=== PATIENT | female | born 1975 | race Caucasian/White ===

== ENCOUNTER 2016-11-28 16:39 | Emergency (ER) | payer MEDICARE, OTHER ==
[~2016-11-28] VITALS: Ht 160 cm; Wt 75.1 kg
[2016-11-28 16:42] VITALS: Ht 160 cm; Wt 75.1 kg
[2016-11-28 18:04] LABS: BASOPHILS % 0.5 % (0.0-2.0); EOSINOPHILS # 0.1 10^3/ul (0.0-0.5); EOSINOPHILS % 0.8 % (0.0-7.0); HEMATOCRIT 42.1 % (37.0-47.0); HEMOGLOBIN 14.4 g/dl (12.0-16.0); LYMPHOCYTES # 3.3 10^3/ul (0.8-2.9); LYMPHOCYTES % 35.4 % (15.0-51.0); MEAN CORPUSCULAR HEMOGLOBIN 33.7 pg (29.0-33.0); MEAN CORPUSCULAR HGB CONC 34.2 g/dl (32.0-37.0); MEAN CORPUSCULAR VOLUME 98.5 fl (82.0-101.0); MEAN PLATELET VOLUME 8.3 fl (7.4-10.4); MONOCYTE # 0.7 10^3/ul (0.3-0.9); MONOCYTES % 7.9 % (0.0-11.0); NEUTROPHIL # 5.2 10^3/ul (1.6-7.5); NEUTROPHILS % 55.4 % (39.0-77.0); PLATELET COUNT 267 10^3/UL (140-440); RED BLOOD COUNT 4.27 10^6/ul (4.20-5.40); RED CELL DISTRIBUTION WIDTH 12.5 % (11.5-14.5); UNCORRECTED WBC 9.4 10^3/ul (4.8-10.8); WHITE BLOOD COUNT 9.4 10^3/ul (4.8-10.8)
[2016-11-28 18:07] LABS: CONDITION 1
[2016-11-28 18:10] LABS: ADD UMIC YES; URINE BILIRUBIN (Dip) 2+ (NEGATIVE); URINE BLOOD (Dip) 3+ (NEGATIVE); URINE COLOR YELLOW (YELLOW); URINE GLUCOSE (Dip) NEGATIVE (NEGATIVE); URINE KETONES (Dip) 15 (NEGATIVE); URINE LEUKOCYTE ESTERASE (Dip) NEGATIVE (NEGATIVE); URINE NITRITE (Dip) NEGATIVE (NEGATIVE); URINE TOTAL PROTEIN (Dip) 1+ (NEGATIVE); URINE UROBILINOGEN (Dip) 1.0 E.U./dL (0.1-1.0)
[2016-11-28 18:23] LABS: ICTOTEST NEGATIVE (NEGATIVE)
--- NOTE | 2016-11-28 18:53 | RADRPT ---
PROCEDURE: US Obstetrical 1st Trimester CLINICAL INDICATION: Vaginal bleeding TECHNIQUE: Multiple real-time images were acquired of the patient's maternal abdomen utilizing a curved array transducer. Endovaginal scanning was also performed. COMPARISON: None FINDINGS: The uterus is retroverted and is normal in size. The endometrial stripe measures 0.8 cm Inderal AP diameter. No intrauterine gestation is evident. The right ovary measures 2.5 x 1.8 x 1.8 cm. The left ovary measures 2.7 x 2.5 x 2.0 cm Vascular flow is demonstrated in each ovary on Doppler. No adnexal mass is identified but there is a small amount of free fluid within the cul-de-sac. IMPRESSION: 1. Normal sized retroverted uterus with a 0.8 cm endometrial stripe. No intrauterine gestation is i dentified. 2. Normal ovaries with vascular flow demonstrated in each. 3. No adnexal mass is identified but there is a small amount of free fluid is seen within the cul-d e-sac. 4. If the test is positive, correlation with quantitative serial beta HCG is indicated as differential possibilities include a spontaneous , and an occult ectopic cannot t otally be excluded. Physician Riaz Date Time Electronically viewed and signed by Physician Riaz on 11/28/2016 18:53 /
--- NOTE | 2016-11-28 19:29 | ERD ---
ER Documentation Chief Complaint Date/Time DATE: 11/28/16 TIME: 19:25 Chief Complaint unk preg, vag bleeding today HPI Patient is a 41-year-old female who states that this morning she had some vaginal bleeding and she took a test and it came back positive. She is concerned because she is Rh- and wants to get RhoGam if it is indicated. She admits to nausea and vomiting however she states that is normal for her as she has lap band and this occurs often. She denies any new or unusual nausea or vomiting. She saw OB doctor today who recommended to go to the emergency room. The pain is mild to moderate. She is with 5 spontaneous abortions. She states her periods are irregular and the last one she remembers was 24 days ago. ROS All systems reviewed and are negative except as per history of present illness. Allergies Allergies: Coded Allergies: No Known Allergy (Unverified , 11/28/16) FmHx Family History: No diabetes Physical Exam Vitals Vital Signs Date Time Temp Pulse Resp B/P Pulse Ox O2 Delivery O2 Flow Rate FiO2 11/28/16 16:42 98.1 90 18 127/75 99 Physical Exam General: well developed, well nourished, alert, nontoxic, no distress Head: normocephalic, atraumatic Neck: Supple, nontender, no lymphadenopathy, no midline tenderness Respiratory: Clear to auscaultation bilaterally, speaks in full sentences, no use of accesory muscles or labored breathing, no rales, ronchi, or wheezing Cardiovascular: RRR, No murmurs GI: soft, non tender, non distended, negative murphys sign, negative mcburneys point tenderness, no cva tenderness bilaterally, no rebound or guarding Result Diagram: 11/28/16 1742 Results 24 hrs Laboratory Tests Test 11/28/16 17:42 Basophils # 0.010^3/ul Basophils % 0.5% Beta HCG, Quantitative < 2.4mIU/ml Eosinophils # 0.110^3/ul Eosinophils % 0.8% Hematocrit 42.1% Hemoglobin 14.4g/dl Lymphocytes # 3.310^3/ul Lymphocytes % 35.4% Mean Corpuscular Hemoglobin 33.7pg Mean Corpuscular Hemoglobin Concent 34.2g/dl Mean Corpuscular Volume 98.5fl Mean Platelet Volume 8.3fl Monocytes # 0.710^3/ul Monocytes % 7.9% Neutrophils # 5.210^3/ul Neutrophils % 55.4% Nucleated Red Blood Cells # 0.010^3/ul Nucleated Red Blood Cells % 0.0/100WBC Platelet Count 25903^3/UL Red Blood Count 4.2710^6/ul Red Cell Distribution Width 12.5% Urine Bilirubin 2+ Urine Clarity CLEAR Urine Color YELLOW Urine Glucose NEGATIVE% Urine Hemoglobin 3+ Urine Ictotest NEGATIVE Urine Ketones 15 Urine Leukocyte Esterase NEGATIVE Urine Microscopic RBC 2-5/HPF Urine Microscopic WBC 0-2/HPF Urine Nitrite NEGATIVE Urine Specific [place] >=1.030 Urine Total Protein 1+ Urine Urobilinogen 1.0 E.U./dL Urine pH 5.5 White Blood Count 9.410^3/ul Procedures/MDM Patient is a 41-year-old female who presents with vaginal bleeding. She took a she took a test at home today which she stated was faintly positive. She does state that her periods are irregular but because of the positive test she decided to come in. Her vital signs are within normal limits. CBC is within normal limits. She is hemodynamically stable. Ultrasound did not show any evidence of and furthermore her beta hCG less than was 2.4. Therefore it is unlikely she is however at this time we cannot fully exclude ectopic and therefore recommend follow- up examination in turning of the beta-hCGs and ultrasound in 2 days. Patient was given copy of all the labs and ultrasound reports she can follow primary care. I reviewed the case with Dr. Stacy who stated that given this program is not indicated although she is Rh-. Recommended this patient follow up with her primary care doctor within 48 hours or return to the emergency room for any worsening of symptoms. However this time I do believe there is suitable for outpatient management. I answered all their questions and they agreed with the plan and were discharged home. Departure Diagnosis: Primary Impression: Dysfunctional uterine bleeding Condition: Stable Patient Instructions: Dysfunctional Uterine Bleeding Additional Instructions: Call your primary care doctor TOMORROW for an appointment during the next 1-2 days.See the doctor sooner or return here if your condition worsens before your appointment time. DONIS POSADAS PA-C Nov 28, 2016 19:29
[2016-11-28 20:01] VITALS: BP 124/83; PULSE 110; RESP 18; TEMP 98.1
== END 2016-11-28 20:01 | disposition home or self-care (01) ==
LOC: FTE 16:39
DX: N93.8 Other specified abnormal uterine and vaginal bleeding (principal)
CPT/HCPCS: 36415; 76801; 76817; 81001; 81003; 84702; 85025; 86900; 86901